=== PATIENT | female | born 1970 | race Caucasian/White ===

== ENCOUNTER → 2024-04-26 10:32 | Outpatient (REF) | payer MEDICARE, OTHER, SELFPAY | LOC: HWRAD 10:32 | PROVIDERS: ATTENDING PHYSICIAN Internal Medicine Geriatric Medicine | DX: Z13.9 Encounter for screening, unspecified (principal) | CPT/HCPCS: 71046 ==

== ENCOUNTER 2024-05-25 10:52 | Emergency (ER) | payer MEDICARE, OTHER, SELFPAY ==
[2024-05-25 10:56] VITALS: BP 126/76
--- NOTE | 2024-05-25 12:01 | ED.GENMED ---
History of Present Illness
<Yaa Wakefield MD, Resident - Last Filed: 05/25/24 13:13>
General
Chief Complaint: Skin Surface Trauma
Source: patient and records
Exam Limitations: other (history of TBI)
Time Seen by Provider: 05/25/24 11:47
Nursing documentation reviewed up to this point in time: agreed with
History of Present Illness
History of Present Illness:
53yo F with PMH TBI who presents from [facility] due to a laceration on R index finger. Unclear when or how this injury occured-- she is a poor historian due to baseline mental status from TBI. She denies pain to the finger.
Otherwise in her usual state of health, review of systems negative.
Past History
<Yaa Wakefield MD, Resident - Last Filed: 05/25/24 13:13>
Past History
ED Past Medical History: Asthma, GERD, HTN, Psychiatric (anxiety, bipolar disorder, depression, impulse control disorder, h/o substance abuse) and Other (Traumatic brain injury 2008)
Patient has exhibited threatening behavior?: Yes
Date of threatening behavior? (updated with each occurrence): 10/29/18 (shouting, cursing, spitting at staff)
Social History
Tobacco: Non-smoker
Alcohol: None
Drug: Former user
Living: assisted living
Family History
Family History: Other (noncontributory)
Review of Systems
<Yaa Wakefield MD, Resident - Last Filed: 05/25/24 13:13>
Review of Systems
Constitutional: Reports no symptoms
EENT: Reports no symptoms
Respiratory: Reports no symptoms
Cardiac: Reports no symptoms
ABD/GI: Reports no symptoms
Phy Exam
<Yaa Wakefield MD, Resident - Last Filed: 05/25/24 13:13>
Physical Exam
Physical Exam:
Right index finger with laceration on palmar surface at DIP-- approx 1cm, spanning width of finger. Hemostatic. No drainage, erythema, fluctuance.
General Physical Exam
General Presentation: no apparent distress
General age: appears stated age
General Skin: warm and dry
General Habitus: obese
General Mental: usual mental status (h/o TBI)
General Hydration: appears well hydrated
General Chronic Disability: other (ambulatory dysfunction, requires wheelchair; baseline mental status due to h/o TBI, confused)
Cardiovascular Exam
Cardiovascular Exam: regular rate/rhythm and no JVD
Pulmonary Exam
Pulmonary Exam: lungs clear and no respiratory distress
Oxygen Status: room air
Gastrointestinal Exam
Gastrointestinal Exam: non tender, soft and non distended
Neurological Exam
Neurological Exam: alert, abnormal gait, confused, dysarthric and other (strabismus)
Course
<Yaa Wakefield MD, Resident - Last Filed: 05/25/24 13:13>
Orders/Labs/Results
Orders:
Orders
05/25/24 12:17
Tetanus/Diphth/Acelpertussis [Adacel] 0.5 ml IM .ONCE ONE
Vital Signs
Initial and Last Documented VS:
Initial Vital Signs
Temp Pulse Resp BP Pulse Ox
98 F 74 16 126/76 98
05/25/24 10:56 05/25/24 10:56 05/25/24 10:56 05/25/24 10:56 05/25/24 10:56
Last Documented Vital Signs
Temp Pulse Resp BP Pulse Ox
98 F 74 16 126/76 98
05/25/24 10:56 05/25/24 10:56 05/25/24 10:56 05/25/24 10:56 05/25/24 10:56
<Tila Sweet DO - Last Filed: 05/25/24 12:28>
Orders/Labs/Results
Orders:
Orders
05/25/24 12:17
Tetanus/Diphth/Acelpertussis [Adacel] 0.5 ml IM .ONCE ONE
Vital Signs
Initial and Last Documented VS:
Initial Vital Signs
Temp Pulse Resp BP Pulse Ox
98 F 74 16 126/76 98
05/25/24 10:56 05/25/24 10:56 05/25/24 10:56 05/25/24 10:56 05/25/24 10:56
Last Documented Vital Signs
Temp Pulse Resp BP Pulse Ox
98 F 74 16 126/76 98
05/25/24 10:56 05/25/24 10:56 05/25/24 10:56 05/25/24 10:56 05/25/24 10:56
Procedures
<Tila Sweet DO - Last Filed: 05/25/24 12:28>
Laceration Closure
Right First Finger(s):
Status of Wound: clean
Size of Wound in cm: 2
Preparation: cleaned with saline
Type of Closure: single layer closure and Dermabond-skin glue
<Yaa Wakefield MD, Resident - Last Filed: 05/25/24 13:13>
MDM/Problems Addressed
Differential Diagnosis Includes:
superficial hemostatic laceration of R index finger
Unknown mechanism of injury, unknown tetanus status
MDM/Problems Addressed:
Laceration is hemostatic, clean, straight skin edges reapproximate easily
Laceration was irrigated and dermabond applied. Covered with bandage.
Finger was splinted due to proximity of laceration to joint, to limit movement of finger and prevent separation of skin edges
Will provide TDAP vaccine prior to discharge
Stable for discharge back to assisted living facility, follow up with pcp prn
<Yaa Wakefield MD, Resident - Last Filed: 05/25/24 13:13>
*Critical Care Note
Total Time (30-74mins, 75-104mins- exclusive of procedures): Not Applicable
ED Attending Note
<Yaa Wakefield MD, Resident - Last Filed: 05/25/24 13:13>
-
Portions of this chart may have been created with voice recognition software.� Occasional wrong word or��sound alike� substitutions may have occurred due to the inherent limitations of voice recognition software.
<Tila Sweet DO - Last Filed: 05/25/24 12:28>
ED Attending Note
Patient seen and examined by attending physician: Yes
I performed the substantive portion of visit, reviewed & personally made and approve the management plan that is documented in note by myself or ANGELES.: Yes
I performed a history and physical exam of patient and discussed management with resident, I reviewed resident's note and agree with documented findings and plan of care.: Yes
ED Attending Note:
53-year-old female with history of TBI presenting for laceration to the right first digit. Patient presents from her facility, notes she cut herself with a knife by accident. She is unsure when this occurred, notes that it was not today and it was
not yesterday. Denies numbness or tingling. Tetanus unknown. She does not want stitches.
Vitals are normal. On exam, 2 cm laceration at the right first palmar DIP, superficial with clean wound edges. No active bleeding. Do feel sutures would help with wound closure, however do not suspect that this occurred within the past 24 hours.
Patient is declining sutures at this time, would prefer Dermabond. Will place Dermabond and finger splint. Will update tetanus. Otherwise feel stable for discharge.
Discharge Plan
Departure
Patient Disposition: Assisted Living
Date of Disposition: 05/25/24
Time of Disposition: 13:08
Patient with high blood pressure during this ER visit?: No
Discharge Problem:
Laceration of finger of right hand
Instructions: Laceration Repair With Glue (DC)
Prescriptions:
No Action
propranolol 80 MG tablet
80 mg PO BID
trazodone 50 MG tablet
50 mg PO HS
Patient Comments:
take 1-2 tablets at bedtime
clonazepam 0.5 MG tablet
0.5 mg PO BID
Patient Comments:
take at 3pm and 8 pm
melatonin 3 MG tablet
6 mg PO HS
magnesium hydroxide 30 ML suspension
30 ml PO QIDPRN PRN (Reason: constipation)
lithium carbonate 300 MG capsule
300 mg PO BID
hydrochlorothiazide [Microzide] 12.5 MG capsule
12.5 mg PO DAILY
docusate sodium 100 MG capsule
100 mg PO BID
duloxetine 60 MG capsule,delayed release(DR/EC)
60 mg PO DAILY
ipratropium-albuterol 3 ML solution for nebulization
3 ml inhalation R Q4HPRN PRN (Reason: sob) 0RF
lorazepam [Ativan] 2 MG/ML solution
2 mg IV Q4HPRN PRN (Reason: agitation, use first) 0RF
prednisone 20 MG tablet
20 mg PO DAILY 3 Days 0RF
Rx Instructions:
take one table daily for three days then stop
clonazepam 0.5 MG tablet
0.5 mg PO BID 0RF
olanzapine 5 MG tablet
5 mg PO DAILY 0RF
famotidine 20 MG tablet
20 mg PO BID 0RF
diphenhydramine HCl [Banophen] 25 MG capsule
25 mg PO Q4HPRN PRN (Reason: swelling, itching) 0RF
divalproex 500 MG tablet extended release 24 hr
750 mg PO HS 0RF
docusate sodium 100 MG capsule
100 mg PO BID 0RF
divalproex 250 MG tablet extended release 24 hr
750 mg PO HS 0RF
duloxetine 60 MG capsule,delayed release(DR/EC)
60 mg PO DAILY 0RF
Referrals:
Adam Ryan DO [Family Provider] -
Interventions
Interventions:
*Risk Screen - Suicide Last Done: 05/25/24 10:56
*Neglect/Abuse Screening Last Done: 05/25/24 10:56
ED-Skin Assessment Last Done: 05/25/24 12:42
Discharge Date and Time
Print Language: HONDURAN
[2024-05-25 12:39] VITALS: BMI 38.5
== END 2024-05-25 15:45 ==
LOC: EMR 10:52
PROVIDERS: EMERGENCY PHYSICIAN Student in an Organized Health Care Education/Training Program; FAMILY PHYSICIAN Internal Medicine Geriatric Medicine
DX: S61.210A Laceration without foreign body of right index finger without damage to nail, initial encounter (principal); W26.0XXA Contact with knife, initial encounter; Z87.820 Personal history of traumatic brain injury
CPT/HCPCS: 99282; 12001; 90715

== ENCOUNTER 2024-09-16 14:40 | Emergency (ER) | payer MEDICARE, OTHER, SELFPAY ==
[2024-09-16 14:51] VITALS: BP 128/95
--- NOTE | 2024-09-16 16:47 | ED.GENMED ---
History of Present Illness
General
Chief Complaint: Fall
Source: patient
Exam Limitations: none
Time Seen by Provider: 09/16/24 16:14
History of Present Illness
History of Present Illness:
53 y/o F with h/o schizophrenia
from a facility
here with forehead after mechanical fall forward, tripped over her feet and hit her forehead on the ground
she wears glasses which didn't get damaged
she is at her baseline, no confusion
she calls out and hollers a lot of the day saad if she misses her meds, which she did this afternoon according to nurse dank who i talked to
pt is not on blood thinners
no complaints here
she has a chronic resting tremor
no vomiting, neck pain.
Past History
Past History
ED Past Medical History: Asthma, GERD, HTN, Psychiatric (anxiety, bipolar disorder, depression, impulse control disorder, h/o substance abuse) and Other (Traumatic brain injury 2008)
Patient has exhibited threatening behavior?: Yes
Date of threatening behavior? (updated with each occurrence): 10/29/18 (shouting, cursing, spitting at staff)
Social History
Tobacco: Non-smoker
Alcohol: None
Drug: Former user
Living: assisted living
Family History
Family History: Other (noncontributory)
Review of Systems
Review of Systems
Allergies reviewed?: Yes
All Other Systems: Not applicable
Phy Exam
Physical Exam
Physical Exam:
GENERAL: Alert , in no apparent distress
HEAD: NCAT minimal forehead swelling
EYE: pupils equal and reactive, mild strabismus no photophobia
NECK: Supple,full rom, nontender
ENT: o/p clr, mmm.
CARDIAC: Regular rate and rhythm . no edema
LUNGS: Clear breath sounds bilaterally, no acute respiratory distress, no wheezes/rales/rhonchi
ABDOMEN: Soft, without focal tenderness, no r/g, no cvat
NEUROLOGICAL: Alert and orientedx 2 (pt is schizophrenic), cn intact, no facial asymmetry, 5/5 strength in UE/LE, sensation intactslight tremor R arm, neg pronator drift
SKIN: Warm and dry, skin intact. no wounds
MUSCULOSKELETAL: No edema, well perfused.
PSYCH: calling out at times, seems to have internal stimuli, some halluicnations or just calls out
Course
Orders/Labs/Results
Orders:
Orders
09/16/24 16:37
CT Head W/o Iv Contrast Urgent
Comment:
Reason For Exam: fall, schizophrniea
Clonazepam [Klonopin] 0.25 mg PO NOW STA
09/16/24 16:47
Clonazepam [Klonopin] 0.5 mg PO NOW STA
09/16/24 20:12
Clonidine [Catapres] 0.1 mg PO NOW STA
09/16/24 20:22
Propranolol [Inderal] 80 mg PO NOW STA
Vital Signs
Initial and Last Documented VS:
Initial Vital Signs
Temp Pulse Resp BP Pulse Ox
36.9 C 59 18 128/95 95
09/16/24 14:51 09/16/24 14:51 09/16/24 14:51 09/16/24 14:51 09/16/24 14:51
Last Documented Vital Signs
Temp Pulse Resp BP Pulse Ox
36.9 C 61 16 134/67 97
09/16/24 14:51 09/16/24 18:17 09/16/24 18:17 09/16/24 18:17 09/16/24 18:17
MDM/Problems Addressed
Differential Diagnosis Includes:
head injyury concussion
MDM/Problems Addressed:
53 y/o F
tbi, bipolar disorder
significant mental health
mechanical fall onto her head bumped on ground
no thinners
i spoke with staff who confirmed this, sent med list
pt reyna dher afternoon clonazepam and clonidine and propranolol, all which can be given together and help with her outbursrs
neuro seemed nonfocal
ct neg
pt ambluated here
intermittently calling out
received her clonazepam beofre CT and i ordered her clonidine and propranolol since she would be waitnig for transport back
*Critical Care Note
Total Time (30-74mins, 75-104mins- exclusive of procedures): Not Applicable
ED Attending Note
-
Portions of this chart may have been created with voice recognition software.� Occasional wrong word or��sound alike� substitutions may have occurred due to the inherent limitations of voice recognition software.
Discharge Plan
Departure
Patient Disposition: Home (Routine Discharge)
Date of Disposition: 09/16/24
Time of Disposition: 18:55
Patient with high blood pressure during this ER visit?: No
Condition: Fair
Covid-19: Not Applicable
Discharge Problem:
Fall, Minor closed head injury
Instructions: Head Injury in Adults (DC)
Prescriptions:
No Action
propranolol 80 MG tablet
80 mg PO BID
trazodone 50 MG tablet
50 mg PO HS
Patient Comments:
take 1-2 tablets at bedtime
clonazepam 0.5 MG tablet
0.5 mg PO BID
Patient Comments:
take at 3pm and 8 pm
melatonin 3 MG tablet
6 mg PO HS
magnesium hydroxide 30 ML suspension
30 ml PO QIDPRN PRN (Reason: constipation)
lithium carbonate 300 MG capsule
300 mg PO BID
hydrochlorothiazide [Microzide] 12.5 MG capsule
12.5 mg PO DAILY
docusate sodium 100 MG capsule
100 mg PO BID
duloxetine 60 MG capsule,delayed release(DR/EC)
60 mg PO DAILY
ipratropium-albuterol 3 ML solution for nebulization
3 ml inhalation R Q4HPRN PRN (Reason: sob) 0RF
lorazepam [Ativan] 2 MG/ML solution
2 mg IV Q4HPRN PRN (Reason: agitation, use first) 0RF
prednisone 20 MG tablet
20 mg PO DAILY 3 Days 0RF
Rx Instructions:
take one table daily for three days then stop
clonazepam 0.5 MG tablet
0.5 mg PO BID 0RF
olanzapine 5 MG tablet
5 mg PO DAILY 0RF
famotidine 20 MG tablet
20 mg PO BID 0RF
diphenhydramine HCl [Banophen] 25 MG capsule
25 mg PO Q4HPRN PRN (Reason: swelling, itching) 0RF
divalproex 500 MG tablet extended release 24 hr
750 mg PO HS 0RF
docusate sodium 100 MG capsule
100 mg PO BID 0RF
divalproex 250 MG tablet extended release 24 hr
750 mg PO HS 0RF
duloxetine 60 MG capsule,delayed release(DR/EC)
60 mg PO DAILY 0RF
Referrals:
UNKNOWN - PT NOT,INTERVIEWE [Family Provider] -
Activity Restrictions/Additional Instructions:
ZANE HAD A NEGATIVE HEAD CT SCAN
SHE MAY HAVE MINOR HEAD INJURY BUT CAN GO TO SLEEP NORMALLY TONIGHT
TYLENOL FR PAIN NEEDED
i did give her doses of clonidine 0.1 mg and propranolol 80 mg as well as clonazepam 0.5 mg today
Interventions
Interventions:
*Risk Screen - Suicide Last Done: 09/16/24 14:51
*General Assessment Last Done: 09/16/24 14:51
*Neglect/Abuse Screening Last Done: 09/16/24 14:51
ED-Musculoskeletal Assessment Last Done: 09/16/24 16:40
ED- Neurological Assessment Last Done: 09/16/24 19:12
ED-Skin Assessment Last Done: 09/16/24 19:12
Discharge Date and Time
Print Language: MALTESE
[2024-09-16] MEDS: KLONOPIN 0.5 MG PO (17:04)
[2024-09-16 18:17] VITALS: BP 134/67
[2024-09-16] MEDS: CATAPRES 0.1 MG PO (20:19)
--- NOTE | 2024-09-16 20:23 | EDRN ---
Pt went into room #35 and had to be removed by staff. SUSI ReynosoT is not sitting with pt. Pt requested pull up and was informed hospital does not have any. Pt says her pull up is not wet - pt given mesh underwear and feminine pad to put on which
she loudly declined.
[2024-09-16 21:07] VITALS: BP 150/84
[2024-09-16] MEDS: INDERAL 80 MG PO (21:07)
--- NOTE | 2024-09-16 22:09 | EDRN ---
Nurse from [facility] called, informed waiting for pt to be picked up. Report given.
== END 2024-09-16 22:50 | disposition home or self-care (01) ==
LOC: EMR 14:40
PROVIDERS: EMERGENCY PHYSICIAN Student in an Organized Health Care Education/Training Program
DX: S09.90XA Unspecified injury of head, initial encounter (principal); W01.0XXA Fall on same level from slipping, tripping and stumbling without subsequent striking against object, initial encounter; R25.1 Tremor, unspecified
CPT/HCPCS: 99284; 70450

== ENCOUNTER 2024-10-21 05:57 | Emergency (ER) | payer MEDICARE, OTHER, SELFPAY ==
[2024-10-21 06:01] VITALS: BP 155/80
[2024-10-21 06:11] VITALS: BP 155/80
[2024-10-21 06:18] VITALS: BMI 41.1
[2024-10-21 08:00] VITALS: BP 153/79
--- NOTE | 2024-10-21 08:01 | ED.GENMED ---
History of Present Illness
General
Chief Complaint: Skin Surface Trauma
Source: patient
Exam Limitations: none
Time Seen by Provider: 10/21/24 07:45
History of Present Illness
History of Present Illness:
53yo right hand dominant with a history of traumatic brain injury presenting via EMS for evaluation of a right elbow laceration. Patient is a resident at [facility]. Staff reportedly found with blood in her bed and noted a right
elbow laceration. Unclear mechanism. Patient at baseline mental status per staff.
Past History
Past History
ED Past Medical History: Asthma, GERD, HTN, Psychiatric (anxiety, bipolar disorder, depression, impulse control disorder, h/o substance abuse) and Other (Traumatic brain injury 2008)
Patient has exhibited threatening behavior?: Yes
Date of threatening behavior? (updated with each occurrence): 10/29/18 (shouting, cursing, spitting at staff)
Social History
Tobacco: Non-smoker
Alcohol: None
Drug: Former user
Living: assisted living
Family History
Family History: Other (noncontributory)
Phy Exam
General Physical Exam
General Presentation: well appearing and no apparent distress
General Skin: warm and dry
General Habitus: normal
General Mental: alert
ENT Exam
ENT Exam: normocephalic
Neurological Exam
Neurological Exam: alert
Musculoskeletal Exam
Musculoskeletal Exam: other (No bony tenderness to R elbow and ROM is normal. 2+ radial pulse.)
Skin Exam
Skin Exam: warm/dry and other (Gaping 4cm laceration noted to the dorsal aspect of the R elbow. No active bleeding.)
Psychiatric Exam
Psychiatric Exam: normal mood/affect
Course
Orders/Labs/Results
Orders:
Orders
10/21/24 07:50
Tetanus/Diphth/Acelpertussis [Adacel] 0.5 ml IM .ONCE ONE
10/21/24 10:42
Tetanus/Diphth/Acelpertussis [Adacel] 0.5 ml .ROUTE .STK-MED ONE
Vital Signs
Initial and Last Documented VS:
Initial Vital Signs
Pulse Ox
99
10/21/24 06:00
Last Documented Vital Signs
Temp Pulse Resp BP Pulse Ox
97.4 F 54 18 138/59 100
10/21/24 06:11 10/21/24 06:11 10/21/24 06:11 10/21/24 10:51 10/21/24 10:13
Procedures
Laceration Closure
Right Elbow:
Status of Wound: clean
Size of Wound in cm: 4
Description of Wound Edges: sharp
Preparation: cleaned with saline
Anesthesia: 1% Lidocaine with epi
Revision/Debridement: routine- no revision
Wound exploration: explored to base- no FB
Type of Closure: single layer closure
Skin Closure Material: 3-0 nylon
Number of sutures: 6
MDM/Problems Addressed
Differential Diagnosis Includes:
53yoF here with a R elbow laceration. 4cm gaping laceration on exam. No bony tenderness noted and ROM of R elbow is normal. RUE is neurovascularly intact. Very low suspicion for fracture. Wound irrigated and repaired as above. Tdap updated. Advised
suture removal in 10 days and return with any signs of infection. Patient discharged back to her residential facility in stable condition.
*Critical Care Note
Total Time (30-74mins, 75-104mins- exclusive of procedures): Not Applicable
ED Attending Note
-
Portions of this chart may have been created with voice recognition software.� Occasional wrong word or��sound alike� substitutions may have occurred due to the inherent limitations of voice recognition software.
Discharge Plan
Departure
Patient Disposition: Home (Routine Discharge)
Date of Disposition: 10/21/24
Time of Disposition: 08:18
Patient with high blood pressure during this ER visit?: Yes
Discharge Problem:
Laceration of right elbow
Instructions: Laceration Repair With [place] (DC)
Prescriptions:
No Action
propranolol 80 MG tablet
80 mg PO BID
trazodone 50 MG tablet
50 mg PO HS
Patient Comments:
take 1-2 tablets at bedtime
clonazepam 0.5 MG tablet
0.5 mg PO BID
Patient Comments:
take at 3pm and 8 pm
melatonin 3 MG tablet
6 mg PO HS
magnesium hydroxide 30 ML suspension
30 ml PO QIDPRN PRN (Reason: constipation)
lithium carbonate 300 MG capsule
300 mg PO BID
hydrochlorothiazide [Microzide] 12.5 MG capsule
12.5 mg PO DAILY
docusate sodium 100 MG capsule
100 mg PO BID
duloxetine 60 MG capsule,delayed release(DR/EC)
60 mg PO DAILY
ipratropium-albuterol 3 ML solution for nebulization
3 ml inhalation R Q4HPRN PRN (Reason: sob) 0RF
lorazepam [Ativan] 2 MG/ML solution
2 mg IV Q4HPRN PRN (Reason: agitation, use first) 0RF
prednisone 20 MG tablet
20 mg PO DAILY 3 Days 0RF
Rx Instructions:
take one table daily for three days then stop
clonazepam 0.5 MG tablet
0.5 mg PO BID 0RF
olanzapine 5 MG tablet
5 mg PO DAILY 0RF
famotidine 20 MG tablet
20 mg PO BID 0RF
diphenhydramine HCl [Banophen] 25 MG capsule
25 mg PO Q4HPRN PRN (Reason: swelling, itching) 0RF
divalproex 500 MG tablet extended release 24 hr
750 mg PO HS 0RF
docusate sodium 100 MG capsule
100 mg PO BID 0RF
divalproex 250 MG tablet extended release 24 hr
750 mg PO HS 0RF
duloxetine 60 MG capsule,delayed release(DR/EC)
60 mg PO DAILY 0RF
Referrals:
Adam Ryan DO [Family Provider, Internal Medicine]
Activity Restrictions/Additional Instructions:
Keep wound clean and dry. Change dressings daily.
Sutures need to be removed in 10 days. Return to the ER with any signs of infection.
Interventions
Interventions:
*Risk Screen - Suicide Last Done: 10/21/24 06:11
*General Assessment Last Done: 10/21/24 06:11
*Neglect/Abuse Screening Last Done: 10/21/24 06:11
*ED- Fall Risk Assessment Last Done: 10/21/24 06:11
*ED COVID-19 Vaccine History Last Done: 10/21/24 06:11
*Nursing Disposition Last Done: 10/21/24 11:00
ED-Skin Assessment Last Done: 10/21/24 06:11
Discharge Date and Time
Print Language: CZECH
[2024-10-21 09:00] VITALS: BP 137/71
[2024-10-21 10:00] VITALS: BP 137/115
[2024-10-21] MEDS: ADACEL 0.5 ML IM (10:46)
[2024-10-21 10:51] VITALS: BP 138/59
== END 2024-10-21 11:00 | disposition home or self-care (01) ==
LOC: EMR 05:57
PROVIDERS: EMERGENCY PHYSICIAN Emergency Medicine; FAMILY PHYSICIAN Internal Medicine Geriatric Medicine
DX: S51.011A Laceration without foreign body of right elbow, initial encounter (principal); X58.XXXA Exposure to other specified factors, initial encounter; I10 Essential (primary) hypertension; J45.909 Unspecified asthma, uncomplicated; Z87.820 Personal history of traumatic brain injury
CPT/HCPCS: 90471; 12002; 99282; 90715